=== PATIENT | female | born 1970 | race Caucasian/White ===

== ENCOUNTER 2018-11-14 10:14 | Day surgery (SDC) | payer BC ==
[2012-05-25 09:34] VITALS: BP 127/91
[2018-11-14] MEDS ORDERED: Depo-Medrol 40 MG/ML IM ONE (10:15)
[2018-11-14] MEDS ORDERED: Ketamine HCl 50 MG/ML IV ONE (10:15)
[2018-11-14] MEDS ORDERED: DIPRIVAN 200 MG/20 ML IV ONE (10:15)
[2018-11-14] MEDS ORDERED: Marcaine 0.5% SDV 10 ML IJ ONE (10:15)
[2018-11-14 12:02] LABS: BASOPHIL % 0.2 % (0.0-0.4); Basophil (Absolute #) 0.02 (0-0.4); Eosinophil % 1.8 % (0.00-5.0); Eosinophil (Absolute #) 0.16 (0-0.5); Granulocytes % 74.7 % (36.0-66.0); Hematocrit 42.1 % (35-47); Hemoglobin 13.5 gm/dl (12.0-16.0); Lymphocyte (Absolute #) 1.48 (1.0-4.6); Lymphocytes % 16.3 % (24.0-44.0); Mean Cell Volume 89.4 fl (78-100); Mean Corpuscular Hemoglobin 28.7 pg (26-32); Mean Corpuscular Hgb Concent. 32.1 g/dl (32-36); Mean Platelet Volume 12.2 fl (6-9.5); Monocyte (Absolute #) 0.64 (0.0-1.3); Platelet Count 365 K/mm3 (150-450); Red Blood Count 4.71 M/mm3 (4.1-5.4); Red Cell Distribution Width 13.9 % (11.5-14.0); White Blood Count 9.1 K/mm3 (4.0-10.5)
[2018-11-14 12:36] LABS: ALBUMIN 4.6 g/dL (3.5-5.0); ALKALINE PHOSPHATASE 91 U/L (38-126); ANION GAP 14.7 MEQ/L (5-15); BLOOD UREA NITROGEN 20 mg/dL (7-17); CHLORIDE 103 mmol/L (98-107); Calcium 9.4 mg/dL (8.4-10.2); Carbon Dioxide 28 mmol/L (22-30); Creatinine 1 0.52 mg/dL (0.52-1.04); Glucose 67 mg/dL (74-106); Potassium 4.1 mmol/L (3.5-5.1); SGOT/AST 38 U/L (14-36); SGPT/ALT 32 U/L (0-35); SODIUM 142 mmol/L (137-145); TSH, 3RD Generation 0.811 mIU/L (0.47-4.68); Total Protein 7.9 g/dL (6.3-8.2)
--- NOTE | 2018-11-14 14:00 | XRAY ---
Indication: Right SI injection. Intraoperative fluoroscopy was provided for 13 seconds. 2 digital spot images submitted for interpretation demonstrates posterior needle tip projecting over the inferior right SI joint. Correlate with intraoperative findings/report.
--- NOTE | 2018-11-14 14:10 | XRAY ---
13 seconds fluoroscopy time in surgery for right SI joint injection.
[2018-11-14] MEDS ORDERED: Lactated Ringers 1,000 ML IV ONE (14:29)
[2018-11-15 11:34] LABS: HEPATITIS B VIRUS CORE TOT AB Non Reactive (Non Reactive); Hepatitis B Surface Antigen Non Reactive (Non Reactive)
[2018-11-17 12:52] LABS: HEPATITIS C VIRUS ANTIBODY Non Reactive (Non Reactive)
== END 2018-11-14 12:32 | disposition home or self-care (01) ==
LOC: SDC-PAIN 10:14
PROVIDERS: ATTEND Psychiatry & Neurology Pain Medicine
DX: M53.3 Sacrococcygeal disorders, not elsewhere classified (principal); M46.1 Sacroiliitis, not elsewhere classified; M79.7 Fibromyalgia; F41.8 Other specified anxiety disorders; Z79.899 Other long term (current) drug therapy
CPT/HCPCS: 20611; 36415; 72020; 77002; 80053; 80074; 82306; 83036; 84443; 85025; J1030; J2704

== ENCOUNTER 2019-06-12 10:35 | Emergency (ER) | payer BC ==
--- NOTE | 2019-06-12 10:46 | ERPHSYRPT ---
- History of Present Illness Time Seen by Provider: 06/12/19 10:46 Source: patient Exam Limitations: no limitations Physician History: 48 y/o white female presents with right lower quadrant abd pain and luq abd pain of a few days duration. pts pain meds not helping. pt had associated vomiting yesterday. pt underwent a gastric bypass 7 years ago. gallbladder and appendix still intact. pt denies urinary sx. Timing/Duration: day(s) (a few) Method of Injury: other (no injury) Quality: sharp, stabbing Severity of Pain-Max: moderate Severity of Pain-Current: moderate Associated Symptoms: nausea, vomiting Previous symptoms: no prior history Allergies/Adverse Reactions: No Known Drug Allergies Allergy (Verified 05/25/12 06:10) Home Medications: Gabapentin 100 mg PO BID 06/12/19 [History] Hydrocodone Bit/Acetaminophen [Randolph 10-325 Tablet] 1 each PO QID 06/12/19 [ History] Levothyroxine Sodium [Euthyrox] 125 mcg PO DAILY 06/12/19 [History] Losartan/Hydrochlorothiazide [Losartan-Hctz 50-12.5 mg Tab] 1 each PO DAILY [History] Ropinirole HCl 1 mg PO HS 06/12/19 [History] Spironolactone 25 mg [Aldactone 25 MG] 25 mg PO DAILY 06/12/19 [History] Hx Tetanus, Diphtheria Vaccination/Date Given: Yes Hx Influenza Vaccination/Date Given: No Hx Pneumococcal Vaccination/Date Given: No - Review of Systems Constitutional: No Symptoms Eyes: No Symptoms Ears, Nose, & Throat: No Symptoms Respiratory: No Symptoms Cardiac: No Symptoms Abdominal/Gastrointestinal: Abdominal Pain (right lower and left upper quad), Nausea, Vomiting Genitourinary Symptoms: No Symptoms Musculoskeletal: No Symptoms Skin: No Symptoms Neurological: No Symptoms Psychological: No Symptoms Endocrine: No Symptoms Hematologic/Lymphatic: No Symptoms Immunological/Allergic: No Symptoms All Other Systems: Reviewed and Negative - Past Medical History Pertinent Past Medical History: Yes Neurological History: No Pertinent History ENT History: No Pertinent History Cardiac History: No Pertinent History Respiratory History: No Pertinent History Endocrine Medical History: No Pertinent History Musculoskeletal History: Arthritis GI Medical History: GERD History: No Pertinent History Psycho-Social History: No Pertinent History Female Reproductive Disorders: No Pertinent History Other Medical History: rectal bleeding, abd pain - Past Surgical History Past Surgical History: Yes Neuro Surgical History: No Pertinent History Cardiac: No Pertinent History Respiratory: No Pertinent History Gastrointestinal: No Pertinent History Genitourinary: Kidney Surgery Musculoskeletal: Other Female Surgical History: Tubal Ligation Other Surgical History: bariatric surgery - Social History Smoking Status: Never smoker Exposure to second hand smoke: No Drug Use: none Patient Lives Alone: No - Nursing Vital Signs Nursing Vital Signs: Initial Vital Signs Temperature 97.8 F 06/12/19 10:52 Pulse Rate 82 06/12/19 10:52 Respiratory Rate 18 06/12/19 10:52 Blood Pressure 133/96 06/12/19 10:52 O2 Sat by Pulse Oximetry 99 06/12/19 10:52 Pain Scale Pain Intensity 10 - Physical Exam General Appearance: mild distress, alert, anxiety Eye Exam: PERRL/EOMI, eyes nml inspection Ears, Nose, Throat Exam: normal ENT inspection, moist mucous membranes Neck Exam: normal inspection, non-tender, supple, full range of motion Respiratory Exam: normal breath sounds, lungs clear, airway intact, No chest tenderness, No respiratory distress Cardiovascular Exam: regular rate/rhythm, normal heart sounds, normal peripheral pulses Gastrointestinal Exam: soft, normal bowel sounds, tenderness (mild right lower and luq abd pain), guarding (+/-) Pelvic Exam: not done Rectal Exam: not done Back Exam: normal inspection, normal range of motion, No CVA tenderness, No vertebral tenderness Extremity Exam: normal inspection, normal range of motion, pelvis stable Neurologic Exam: alert, oriented x 3, cooperative, head of ict II-XII nml as tested Skin Exam: normal color, warm, dry Lymphatic Exam: No adenopathy SpO2 Interpretation: normal O2 Delivery: Room Air - Course Nursing assessment & vital signs reviewed: Yes Ordered Tests: Active Orders 24 hr Category Date Time Status IV Insertion STAT Care 06/12/19 10:47 Active ABDOMEN AND PELVIS W/0 CONTRAS [CT] Stat Exams 06/12/19 10:48 Completed AMYLASE Stat Lab 06/12/19 11:10 Completed CBC W DIFF Stat Lab 06/12/19 11:10 Completed CMP Stat Lab 06/12/19 11:10 Completed LIPASE Stat Lab 06/12/19 11:10 Completed Medication Summary Generic Name Dose Route Start Last Admin Trade Name Freq PRN Reason Stop Dose Admin Ondansetron HCl 4 mg 06/12/19 12:04 Zofran 4 Mg/2 Ml Vial IV 06/12/19 12:05 STAT ONE Discontinued Medications Generic Name Dose Route Start Last Admin Trade Name Marcello PRN Reason Stop Dose Admin Hydromorphone HCl 1 mg 06/12/19 10:47 06/12/19 10:59 Hydromorphone 1 Mg/Ml Ampule IV 06/12/19 10:48 1 mg STAT ONE Administration Hydromorphone HCl Confirm 06/12/19 10:58 Hydromorphone 1 Mg/Ml Ampule Administered 06/12/19 10:59 Dose 1 mg .ROUTE .STK-MED ONE Sodium Chloride 1,000 mls @ 999 mls/hr 06/12/19 10:47 06/12/19 10:54 Sodium Chloride 0.9% 1000 Ml IV 06/12/19 11:47 999 mls/hr .Q1H1M STA Administration Lab/Rad Data: Laboratory Result Diagrams 06/12/19 11:10 06/12/19 11:10 Laboratory Results 06/12/19 06/12/19 Range/Units 11:10 11:10 WBC 8.6 (4.0-10.5) K/mm3 RBC 3.78 L (4.1-5.4) M/mm3 Hgb 10.2 L (12.0-16.0) gm/dl Hct 32.2 L (35-47) % MCV 85.2 (78-100) fl MCH 26.9 (26-32) pg MCHC 31.7 L (32-36) g/dl RDW 15.1 H (11.5-14.0) % Plt Count 417 (150-450) K/mm3 MPV 12.2 H (6-9.5) fl Gran % 77.3 H (36.0-66.0) % Eos # (Auto) 0.07 (0-0.5) Absolute Lymphs (auto) 1.44 (1.0-4.6) Absolute Monos (auto) 0.44 (0.0-1.3) Lymphocytes % 16.7 L (24.0-44.0) % Monocytes % 5.1 (0.0-12.0) % Eosinophils % 0.8 (0.00-5.0) % Basophils % 0.1 (0.0-0.4) % Absolute Granulocytes 6.66 (1.4-6.9) Basophils # 0.01 (0-0.4) Sodium 139 (137-145) mmol/L Potassium 3.2 L (3.5-5.1) mmol/L Chloride 100 (98-107) mmol/L Carbon Dioxide 29 (22-30) mmol/L Anion Gap 13.2 (5-15) MEQ/L BUN 18 H (7-17) mg/dL Creatinine 0.52 (0.52-1.04) mg/dL Estimated GFR > 60.0 ML/MIN Glucose 93 (74-106) mg/dL Calcium 9.4 (8.4-10.2) mg/dL Total Bilirubin 0.50 (0.2-1.3) mg/dL AST 38 H (14-36) U/L ALT 27 (0-35) U/L Alkaline Phosphatase 86 (38-126) U/L Serum Total Protein 7.3 (6.3-8.2) g/dL Albumin 4.3 (3.5-5.0) g/dL Amylase 54 (30-110) U/L Lipase 54 (23-300) U/L - Progress Progress: unchanged Progress Note: 06/12/19 12:03 ct abd/pelvis-collapsed right ovarian cyst with mild fluid collection in pelvis. no other acute findings. Counseled pt/family regarding: lab results, diagnosis, need for follow-up, rad results - Departure Departure Disposition: Home Clinical Impression: Right ovarian cyst Condition: Stable Critical Care Time: No Referrals: DOCTOR,NO FAMILY [Primary Care Provider] - Additional Instructions: use your home medications for pain. follow up with primary doctor for further pain management if needed. may add ibuprofen for pain if no contraindications
[2019-06-12] MEDS ORDERED: Hydromorphone 1 mg/ml Ampule IV ONE (10:47)
[2019-06-12] MEDS ORDERED: Sodium Chloride 0.9% 1000 ML 1,000 ML IV STA (10:47)
[2019-06-12] MEDS ORDERED: Hydromorphone 1 mg/ml Ampule ONE (10:58)
[2019-06-12 11:30] LABS: BASOPHIL % 0.1 % (0.0-0.4); Basophil (Absolute #) 0.01 (0-0.4); Eosinophil % 0.8 % (0.00-5.0); Eosinophil (Absolute #) 0.07 (0-0.5); Granulocyte Absolute (ANC) 6.66 (1.4-6.9); Granulocytes % 77.3 % (36.0-66.0); Hematocrit 32.2 % (35-47); Hemoglobin 10.2 gm/dl (12.0-16.0); Lymphocyte (Absolute #) 1.44 (1.0-4.6); Lymphocytes % 16.7 % (24.0-44.0); Mean Cell Volume 85.2 fl (78-100); Mean Corpuscular Hgb Concent. 31.7 g/dl (32-36); Mean Platelet Volume 12.2 fl (6-9.5); Monocyte (Absolute #) 0.44 (0.0-1.3); Monocytes % 5.1 % (0.0-12.0); Platelet Count 417 K/mm3 (150-450); Red Blood Count 3.78 M/mm3 (4.1-5.4); Red Cell Distribution Width 15.1 % (11.5-14.0); White Blood Count 8.6 K/mm3 (4.0-10.5)
[2019-06-12 11:38] LABS: Mean Corpuscular Hemoglobin 26.9 pg (26-32)
[2019-06-12 11:42] LABS: ALBUMIN 4.3 g/dL (3.5-5.0); ALKALINE PHOSPHATASE 86 U/L (38-126); AMYLASE 54 U/L (30-110); ANION GAP 13.2 MEQ/L (5-15); BLOOD UREA NITROGEN 18 mg/dL (7-17); CHLORIDE 100 mmol/L (98-107); Calcium 9.4 mg/dL (8.4-10.2); Carbon Dioxide 29 mmol/L (22-30); Creatinine 1 0.52 mg/dL (0.52-1.04); Glucose 93 mg/dL (74-106); LIPASE 54 U/L (23-300); Potassium 3.2 mmol/L (3.5-5.1); SGOT/AST 38 U/L (14-36); SGPT/ALT 27 U/L (0-35); SODIUM 139 mmol/L (137-145); Total Protein 7.3 g/dL (6.3-8.2)
--- NOTE | 2019-06-12 11:52 | XRAY ---
Indication: Bilateral flank pain. History stones. Multiple contiguous axial images obtained through the abdomen and pelvis without contrast using renal stone protocol. Comparison: Contrasted exam July 13, 2014. Lung bases demonstrate stable left posterior gutter calcified granuloma. No infiltrate or effusion. Heart is not enlarged. Right kidney demonstrates 3 and left kidney demonstrates 2 nonobstructing micro-calculi. Again mild bilateral pelvocaliectasis and mild prominence of the proximal ureters. No obvious distal ureteral or bladder calculus. There is collapsing right renal cyst with tiny cul-de-sac fluid. Again previous gastric bypass surgery. Noncontrasted stomach and bowel loops are nonobstructed. Normal air-filled appendix. There is now mild diffuse scattered colonic fecal debris throughout including rectum. No free air. Remaining liver, gallbladder, pancreas, spleen, adrenal glands, bladder, uterus, and aorta appear unremarkable for noncontrast exam. Osseous structures intact again with mild lower lumbar degenerative changes. No ventral or inguinal hernias. Impression: 1. Nonobstructing bilateral renal micro-calculi with stable bilateral pelvocaliectasis and prominence of the proximal ureters. 2. Collapsing right ovary cyst with tiny cul-de-sac fluid. 3. Incidental diffuse fecal stasis and stable left lung base calcified granuloma. CT DI 13.03
[2019-06-12] MEDS ORDERED: Zofran 4 MG/2 ML VIAL IV ONE (12:04)
[2019-06-12] MEDS ORDERED: Zofran 4 MG/2 ML VIAL ONE (12:07)
[2019-06-12 12:16] VITALS: BP 139/93
[2019-06-12 12:19] VITALS: PULSE 88; O2SAT 98
[2019-06-12 14:55] LABS: Slide Review 1 YES
== END 2019-06-12 12:17 | disposition home or self-care (01) ==
LOC: ED 10:35
DX: N83.201 Unspecified ovarian cyst, right side (principal)
CPT/HCPCS: 36000; 36415; 74176; 80053; 82150; 83690; 85025; 96360; 96374; 96375; 99284; J1170; J2405

== ENCOUNTER 2021-12-23 11:47 | Emergency (ER) | payer BC ==
[2021-12-23] MEDS ORDERED: Sodium Chloride 0.9% 1000 ML 1,000 ML IV STA (12:18)
[2021-12-23] MEDS ORDERED: PROTONIX 40 MG IV IV ONE ×2 (12:18→12:36)
[2021-12-23] MEDS ORDERED: Zofran 4 MG/2 ML VIAL IV ONE (12:18)
--- NOTE | 2021-12-23 12:18 | ERPHSYRPT ---
- History of Present Illness Time Seen by Provider: 12/23/21 11:49 Patient Subjective Stated Complaint: PT STATES " ABDOMINAL PAIN ABOVE BELLY BUTTON STARTED MONDAY AND GOT WORSE YESTERDAY. LOOSE, BLACK STOOLS, AND NAUSEA, VOMITING." PT STATES SHE HAS ALSO HAD SOME SOB AND DIZZINESS TODAY. Triage Nursing Assessment: PT AMBULATORY, A&OX4. PT SKIN PWD. PT APPEARS TO BE IN NO DISTRESS. Physician History: 51 years old female with history of bariatric surgery presented in the ER with chief complaint of periumbilical/epigastric area pain for the last 2 days, moderate to severe intensity, sharp nature, nonradiating, associated with nausea and this morning started to have loose stool Timing/Duration: day(s) (2), constant, gradual onset, worse Activities at Onset: rest Quality: sharpness Abdominal Pain Onset Location: epigastric, periumbilical Pain Radiation: no radiation Severity of Pain-Max: severe Severity of Pain-Current: moderate Modifying Factors: Worsens With: movement, palpation Associated Symptoms: diarrhea, fatigue, heartburn, nausea, shortness of breath, weakness Previous symptoms: no prior history Allergies/Adverse Reactions: No Known Drug Allergies Allergy (Verified 12/23/21 11:56) Home Medications: Hydrocodone/Acetaminophen [[place] 10-325 Tablet] 1 each PO QID 06/12/19 [History] Ropinirole HCl 1 mg PO HS 06/12/19 [History] Desvenlafaxine Succinate [Desvenlafaxine Succinate ER] 100 mg PO DAILY 05/15/20 [History] Lisinopril 5 mg [Zestril 5 MG] 5 mg PO DAILY 05/15/20 [History] Hx Tetanus, Diphtheria Vaccination/Date Given: Yes Hx Influenza Vaccination/Date Given: No Hx Pneumococcal Vaccination/Date Given: No Travel Risk - International Travel Have you traveled outside of the country in past 3 weeks: No - Coronavirus Screening Symptoms: Shortness of Breath, Vomiting/Diarrhea Close contact with a COVID-19 positive Pt in past 14-21 Days: No - Vaccine Status Have you recieved a Covid-19 vaccination: Yes [employer]: Moderna - Vaccination Dates Date of 2cond Vaccination (if applicable): JANUARY 2021 - Review of Systems Constitutional: Fatigue, Weakness Eyes: No Symptoms Ears, Nose, & Throat: No Symptoms Respiratory: Dyspnea, Dyspnea on Exertion ([place]) Cardiac: No Symptoms Abdominal/Gastrointestinal: Abdominal Pain, Nausea, Diarrhea, Hematochezia Genitourinary Symptoms: No Symptoms Musculoskeletal: No Symptoms Skin: No Symptoms Neurological: Dizziness Psychological: No Symptoms Endocrine: No Symptoms Hematologic/Lymphatic: No Symptoms Immunological/Allergic: No Symptoms - Past Medical History Pertinent Past Medical History: Yes Neurological History: No Pertinent History ENT History: No Pertinent History Cardiac History: Hypertension Respiratory History: No Pertinent History Endocrine Medical History: No Pertinent History Musculoskeletal History: Fibromyalgia GI Medical History: GERD History: No Pertinent History Psycho-Social History: No Pertinent History Female Reproductive Disorders: No Pertinent History Other Medical History: rectal bleeding, abd pain, - Past Surgical History Past Surgical History: Yes Neuro Surgical History: No Pertinent History Cardiac: No Pertinent History Respiratory: No Pertinent History Gastrointestinal: No Pertinent History Genitourinary: Kidney Surgery Musculoskeletal: Other Female Surgical History: Tubal Ligation Other Surgical History: bariatric surgery - Social History Smoking Status: Never smoker Exposure to second hand smoke: No Drug Use: none Patient Lives Alone: No - Nursing Vital Signs Nursing Vital Signs: Initial Vital Signs Temperature 97.5 F 12/23/21 11:49 Pulse Rate 103 H 12/23/21 11:49 Respiratory Rate 18 12/23/21 11:49 Blood Pressure 138/80 12/23/21 11:49 O2 Sat by Pulse Oximetry 100 12/23/21 11:49 Pain Scale Pain Intensity 5 - Physical Exam General Appearance: no apparent distress, alert Eye Exam: PERRL/EOMI, eyes nml inspection Ears, Nose, Throat Exam: normal ENT inspection, pharynx normal Neck Exam: normal inspection, non-tender, supple, full range of motion Respiratory Exam: normal breath sounds, lungs clear Cardiovascular Exam: regular rate/rhythm, normal heart sounds Gastrointestinal/Abdomen Exam: soft, normal bowel sounds, tenderness (Upper abdomen/periumbilical area) Back Exam: normal inspection, normal range of motion Extremity Exam: normal inspection, normal range of motion Neurologic Exam: alert, oriented x 3, cooperative Skin Exam: normal color SpO2 Interpretation: normal SpO2: 100 O2 Delivery: Room Air Ordered Tests: Active Orders 24 hr Category Date Time Status IV Insertion STAT Care 12/23/21 12:18 Completed ABDOMEN AND PELVIS W CONTRAST [CT] Stat Exams 12/23/21 12:18 Completed AMYLASE Stat Lab 12/23/21 12:16 Completed CBC W DIFF Stat Lab 12/23/21 12:16 Results CMP Stat Lab 12/23/21 12:16 Completed CULTURE,URINE Stat Lab 12/23/21 12:18 Received Hematocrit Stat Lab 12/23/21 15:00 Completed Hemoglobin Stat Lab 12/23/21 15:00 Completed LIPASE Stat Lab 12/23/21 12:16 Completed Lactic Acid Stat Lab 12/23/21 12:18 Completed Manual Differential NC Stat Lab 12/23/21 12:16 Results PROTIME WITH INR Stat Lab 12/23/21 12:16 Completed PTT Stat Lab 12/23/21 12:16 Completed Pathologist Review Stat Lab 12/23/21 12:16 Results TROPONIN Q3H Lab 12/23/21 12:30 Completed Medication Summary Discontinued Medications Generic Name Dose Route Start Last Admin Trade Name Freq PRN Reason Stop Dose Admin Fentanyl Citrate Confirm 12/23/21 14:17 Fentanyl Citrate 100 Mcg/2 Ml* Vial Administered 12/23/21 14:18 Dose 100 mcg .ROUTE .STK-MED ONE Fentanyl Citrate 50 mcg 12/23/21 14:17 12/23/21 16:55 Fentanyl Citrate 100 Mcg/2 Ml* Vial IV 12/23/21 14:18 50 mcg STAT ONE Administration Fentanyl Citrate Confirm 12/23/21 16:47 Fentanyl Citrate 100 Mcg/2 Ml* Vial Administered 12/23/21 16:48 Dose 100 mcg .ROUTE .STK-MED ONE Fentanyl Citrate 50 mcg 12/23/21 16:49 12/23/21 16:55 Fentanyl Citrate 100 Mcg/2 Ml* Vial IV 12/23/21 16:50 50 mcg STAT ONE Administration Sodium Chloride 1,000 mls @ 999 mls/hr 12/23/21 12:18 12/23/21 14:05 Sodium Chloride 0.9% 1000 Ml IV 12/23/21 13:18 Infused .Q1H1M STA Infusion Pantoprazole Sodium 80 mg/ 500 mls @ 50 mls/hr 12/23/21 12:45 12/23/21 14:12 Sodium Chloride IV 01/22/22 12:44 50 ml/hr .Q10H L[place] 50 mls/hr Administration Sodium Chloride Confirm 12/23/21 12:36 Sodium Chloride 0.9% 1000 Ml Administered 12/23/21 12:37 Dose 1,000 mls @ ud .ROUTE .STK-MED ONE Sodium Chloride Confirm 12/23/21 15:01 Sodium Chloride 0.9% 1000 Ml Administered 12/23/21 15:02 Dose 1,000 mls @ ud .ROUTE .STK-MED ONE Sodium Chloride 1,000 mls @ 50 mls/hr 12/23/21 15:45 12/23/21 15:34 Sodium Chloride 0.9% 1000 Ml IV 01/22/22 15:44 50 mls/hr .Q20H [place] Administration Ondansetron HCl 4 mg 12/23/21 12:18 12/23/21 12:40 Ondansetron Hcl 4 Mg/2 Ml Vial IV 12/23/21 12:19 4 mg STAT ONE Administration Ondansetron HCl Confirm 12/23/21 12:36 Ondansetron Hcl 4 Mg/2 Ml Vial Administered 12/23/21 12:37 Dose 4 mg .ROUTE .STK-MED ONE Pantoprazole Sodium 40 mg 12/23/21 12:18 12/23/21 12:40 Pantoprazole 40 Mg Vial IV 12/23/21 12:19 40 mg STAT ONE Administration Pantoprazole Sodium Confirm 12/23/21 12:36 Pantoprazole 40 Mg Vial Administered 12/23/21 12:37 Dose 40 mg IV .STK-MED ONE Lab/Rad Data: Laboratory Result Diagrams 12/23/21 15:00 12/23/21 12:16 Laboratory Results 12/23/21 12/23/21 12/23/21 Range/Units 15:00 12:50 12:50 WBC (4.0-10.5) K/mm3 RBC (4.1-5.4) M/mm3 Hgb 5.8 L* (12.0-16.0) gm/dl Hct 19.2 L (35-47) % MCV (78-100) fl MCH (26-32) pg MCHC (32-36) g/dl RDW (11.5-14.0) % Plt Count (150-450) K/mm3 MPV (7.5-11.0) fl Gran % (36.0-66.0) % Eos # (Auto) (0-0.5) Absolute Lymphs (auto) (1.0-4.6) Absolute Monos (auto) (0.0-1.3) Lymphocytes % (24.0-44.0) % Monocytes % (0.0-12.0) % Eosinophils % (0.00-5.0) % Basophils % (0.0-0.4) % Absolute Granulocytes (1.4-6.9) Basophils # (0-0.4) Smear Path Review PT (9.4-12.5) SECONDS INR (0.8-3.0) APTT (25.1-36.5) SECONDS Sodium (137-145) mmol/L Potassium (3.5-5.1) mmol/L Chloride (98-107) mmol/L Carbon Dioxide (22-30) mmol/L Anion Gap (5-15) MEQ/L BUN (7-17) mg/dL Creatinine (0.52-1.04) mg/dL Estimated GFR ML/MIN Glucose (74-106) mg/dL Lactic Acid (0.4-2.0) Calcium (8.4-10.2) mg/dL Total Bilirubin (0.2-1.3) mg/dL AST (14-36) U/L ALT (0-35) U/L Alkaline Phosphatase (38-126) U/L Troponin I (0.000-0.034) ng/mL Serum Total Protein (6.3-8.2) g/dL Albumin (3.5-5.0) g/dL Amylase (30-110) U/L Lipase (23-300) U/L Urinalys Dipstick Clnc Urine Color (YELLOW) Urine Appearance (CLEAR) Urine pH (5-6) Ur Specific [place] (1.005-1.025) POC Urine Protein Conf (Negative) Urine Ketones (NEGATIVE) Urine Nitrite (NEGATIVE) Urine Bilirubin (NEGATIVE) Urine Urobilinogen (0-1) mg/dL Urine Leukocytes (NEGATIVE) Urine WBC (Auto) (0-5) /HPF Urine RBC (Auto) (0-2) /HPF Urine Bacteria (Auto) (NEGATIVE) /HPF Urine RBC (0-5) Unruly/ul Calcium Oxalate Crystal (NEGATIVE) /HPF Urine Mucus (Auto) (NEGATIVE) /HPF Ur Culture Indicated? Urine Glucose (NEGATIVE) mg/dL ABO Group Rh Factor Antibody Screen (NEGATIVE) Crossmatch COMPATIBLE COMPATIBLE (COMPATIBLE) 12/23/21 12/23/21 12/23/21 Range/Units 12:50 12:30 12:18 WBC (4.0-10.5) K/mm3 RBC (4.1-5.4) M/mm3 Hgb (12.0-16.0) gm/dl Hct (35-47) % MCV (78-100) fl MCH (26-32) pg MCHC (32-36) g/dl RDW (11.5-14.0) % Plt Count (150-450) K/mm3 MPV (7.5-11.0) fl Gran % (36.0-66.0) % Eos # (Auto) (0-0.5) Absolute Lymphs (auto) (1.0-4.6) Absolute Monos (auto) (0.0-1.3) Lymphocytes % (24.0-44.0) % Monocytes % (0.0-12.0) % Eosinophils % (0.00-5.0) % Basophils % (0.0-0.4) % Absolute Granulocytes (1.4-6.9) Basophils # (0-0.4) Smear Path Review PT (9.4-12.5) SECONDS INR (0.8-3.0) APTT (25.1-36.5) SECONDS Sodium (137-145) mmol/L Potassium (3.5-5.1) mmol/L Chloride (98-107) mmol/L Carbon Dioxide (22-30) mmol/L Anion Gap (5-15) MEQ/L BUN (7-17) mg/dL Creatinine (0.52-1.04) mg/dL Estimated GFR ML/MIN Glucose (74-106) mg/dL Lactic Acid 1.4 (0.4-2.0) Calcium (8.4-10.2) mg/dL Total Bilirubin (0.2-1.3) mg/dL AST (14-36) U/L ALT (0-35) U/L Alkaline Phosphatase (38-126) U/L Troponin I < 0.012 (0.000-0.034) ng/mL Serum Total Protein (6.3-8.2) g/dL Albumin (3.5-5.0) g/dL Amylase (30-110) U/L Lipase (23-300) U/L Urinalys Dipstick Clnc Urine Color (YELLOW) Urine Appearance (CLEAR) Urine pH (5-6) Ur Specific [place] (1.005-1.025) POC Urine Protein Conf (Negative) Urine Ketones (NEGATIVE) Urine Nitrite (NEGATIVE) Urine Bilirubin (NEGATIVE) Urine Urobilinogen (0-1) mg/dL Urine Leukocytes (NEGATIVE) Urine WBC (Auto) (0-5) /HPF Urine RBC (Auto) (0-2) /HPF Urine Bacteria (Auto) (NEGATIVE) /HPF Urine RBC (0-5) Unruly/ul Calcium Oxalate Crystal (NEGATIVE) /HPF Urine Mucus (Auto) (NEGATIVE) /HPF Ur Culture Indicated? Urine Glucose (NEGATIVE) mg/dL ABO Group B Rh Factor POSITIVE Antibody Screen NEGATIVE (NEGATIVE) Crossmatch (COMPATIBLE) 12/23/21 12/23/21 12/23/21 Range/Units 12:18 12:16 12:16 WBC (4.0-10.5) K/mm3 RBC (4.1-5.4) M/mm3 Hgb (12.0-16.0) gm/dl Hct (35-47) % MCV (78-100) fl MCH (26-32) pg MCHC (32-36) g/dl RDW (11.5-14.0) % Plt Count (150-450) K/mm3 MPV (7.5-11.0) fl Gran % (36.0-66.0) % Eos # (Auto) (0-0.5) Absolute Lymphs (auto) (1.0-4.6) Absolute Monos (auto) (0.0-1.3) Lymphocytes % (24.0-44.0) % Monocytes % (0.0-12.0) % Eosinophils % (0.00-5.0) % Basophils % (0.0-0.4) % Absolute Granulocytes (1.4-6.9) Basophils # (0-0.4) Smear Path Review PT 12.1 (9.4-12.5) SECONDS INR 1.03 (0.8-3.0) APTT 26.8 (25.1-36.5) SECONDS Sodium 141 (137-145) mmol/L Potassium 3.7 (3.5-5.1) mmol/L Chloride 106 (98-107) mmol/L Carbon Dioxide 26 (22-30) mmol/L Anion Gap 12.0 (5-15) MEQ/L BUN 23 H (7-17) mg/dL Creatinine 0.50 L (0.52-1.04) mg/dL Estimated GFR > 60.0 ML/MIN Glucose 126 H (74-106) mg/dL Lactic Acid (0.4-2.0) Calcium 9.2 (8.4-10.2) mg/dL Total Bilirubin 0.20 (0.2-1.3) mg/dL AST 22 (14-36) U/L ALT 17 (0-35) U/L Alkaline Phosphatase 62 (38-126) U/L Troponin I (0.000-0.034) ng/mL Serum Total Protein 5.9 L (6.3-8.2) g/dL Albumin 3.7 (3.5-5.0) g/dL Amylase 30 (30-110) U/L Lipase 117 (23-300) U/L Urinalys Dipstick Clnc MAIN LAB Urine Color YELLOW (YELLOW) Urine Appearance SLIGHTLY CLOUDY (CLEAR) Urine pH 7.0 (5-6) Ur Specific [place] 1.015 (1.005-1.025) POC Urine Protein Conf NEGATIVE (Negative) Urine Ketones NEGATIVE (NEGATIVE) Urine Nitrite POSITIVE (NEGATIVE) Urine Bilirubin NEGATIVE (NEGATIVE) Urine Urobilinogen 1 (0-1) mg/dL Urine Leukocytes NEGATIVE (NEGATIVE) Urine WBC (Auto) 6-10 (0-5) /HPF Urine RBC (Auto) 0-2 (0-2) /HPF Urine Bacteria (Auto) MANY (NEGATIVE) /HPF Urine RBC NEGATIVE (0-5) Unruly/ul Calcium Oxalate Crystal 11-25 (NEGATIVE) /HPF Urine Mucus (Auto) SLIGHT (NEGATIVE) /HPF Ur Culture Indicated? YES Urine Glucose 100 (NEGATIVE) mg/dL ABO Group Rh Factor Antibody Screen (NEGATIVE) Crossmatch (COMPATIBLE) 12/23/21 Range/Units 12:16 WBC 6.7 (4.0-10.5) K/mm3 RBC 2.45 L (4.1-5.4) M/mm3 Hgb 6.4 L* (12.0-16.0) gm/dl Hct 20.8 L (35-47) % MCV 84.9 (78-100) fl MCH 26.1 (26-32) pg MCHC 30.8 L (32-36) g/dl RDW 14.9 H (11.5-14.0) % Plt Count 437 (150-450) K/mm3 MPV 10.4 (7.5-11.0) fl Gran % 75.5 H (36.0-66.0) % Eos # (Auto) 0.04 (0-0.5) Absolute Lymphs (auto) 1.07 (1.0-4.6) Absolute Monos (auto) 0.53 (0.0-1.3) Lymphocytes % 15.9 L (24.0-44.0) % Monocytes % 7.9 (0.0-12.0) % Eosinophils % 0.6 (0.00-5.0) % Basophils % 0.1 (0.0-0.4) % Absolute Granulocytes 5.07 (1.4-6.9) Basophils # 0.01 (0-0.4) Smear Path Review Pending PT (9.4-12.5) SECONDS INR (0.8-3.0) APTT (25.1-36.5) SECONDS Sodium (137-145) mmol/L Potassium (3.5-5.1) mmol/L Chloride (98-107) mmol/L Carbon Dioxide (22-30) mmol/L Anion Gap (5-15) MEQ/L BUN (7-17) mg/dL Creatinine (0.52-1.04) mg/dL Estimated GFR ML/MIN Glucose (74-106) mg/dL Lactic Acid (0.4-2.0) Calcium (8.4-10.2) mg/dL Total Bilirubin (0.2-1.3) mg/dL AST (14-36) U/L ALT (0-35) U/L Alkaline Phosphatase (38-126) U/L Troponin I (0.000-0.034) ng/mL Serum Total Protein (6.3-8.2) g/dL Albumin (3.5-5.0) g/dL Amylase (30-110) U/L Lipase (23-300) U/L Urinalys Dipstick Clnc Urine Color (YELLOW) Urine Appearance (CLEAR) Urine pH (5-6) Ur Specific [place] (1.005-1.025) POC Urine Protein Conf (Negative) Urine Ketones (NEGATIVE) Urine Nitrite (NEGATIVE) Urine Bilirubin (NEGATIVE) Urine Urobilinogen (0-1) mg/dL Urine Leukocytes (NEGATIVE) Urine WBC (Auto) (0-5) /HPF Urine RBC (Auto) (0-2) /HPF Urine Bacteria (Auto) (NEGATIVE) /HPF Urine RBC (0-5) Unruly/ul Calcium Oxalate Crystal (NEGATIVE) /HPF Urine Mucus (Auto) (NEGATIVE) /HPF Ur Culture Indicated? Urine Glucose (NEGATIVE) mg/dL ABO Group Rh Factor Antibody Screen (NEGATIVE) Crossmatch (COMPATIBLE) - Progress Progress: unchanged Progress Note: 12/23/21 12:37 51 years old is evaluated for abdominal pain with GI bleed. Patient is hemodynamically stable. Given symptomatic treatment for pain and Protonix. Patient work-up showed normal white count and drop of hemoglobin from 10-6.4. Type and screen and crossmatch and will transfuse as soon as available. Di scussed risk and benefits of transfusion and patient wanted to go ahead with it. Chemistries grossly unremarkable. I have discussed with Dr. Jose Wilson at [facility], recommended calling back after CT abdomen pelvis results. 12/23/21 14:18 [facility] is called back and discussed with Dr. Wilson and Dr. Darnell Chery, recommended transfer to facility with bariatric surgery services as patient could be bleeding from remnant which cannot be approached with normal endoscopy. 12/23/21 14:39 [place] discussed with Dr. Smith, reviewed history, work-up and patient is excepted on behalf of Dr. Samaniego. Plan discussed with patient who understand and agrees with it. 12/23/21 16:14 Patient remained hemodynamically stable. Repeat H&H is 5.8. Patient is receiving first unit of PRBCs and will soon be transferred. Counseled pt/family regarding: lab results, diagnosis, rad results - Departure Departure Disposition: Transfer Clinical Impression: GI bleed, Symptomatic anemia Condition: Stable Critical Care Time: Yes Critical Care Time(excluding separately billable procedures): Critical 30-74 mins Referrals: DOCTOR,NO FAMILY [NON-STAFF PHY W/O PRIVILEGES] - Follow up/PCP as directed
[2021-12-23 12:27] LABS: Absolute Neutrophil Ct (ANC) 5.07 (1.4-6.9); Basophil (Absolute #) 0.01 (0-0.4); Eosinophil % 0.6 % (0.00-5.0); Eosinophil (Absolute #) 0.04 (0-0.5); Hematocrit 20.8 % (35-47); Lymphocyte (Absolute #) 1.07 (1.0-4.6); Lymphocytes % 15.9 % (24.0-44.0); Mean Cell Volume 84.9 fl (78-100); Mean Corpuscular Hemoglobin 26.1 pg (26-32); Mean Corpuscular Hgb Concent. 30.8 g/dl (32-36); Mean Platelet Volume 10.4 fl (7.5-11.0); Monocyte (Absolute #) 0.53 (0.0-1.3); Monocytes % 7.9 % (0.0-12.0); Neutrophil % 75.5 % (36.0-66.0); Platelet Count 437 K/mm3 (150-450); Red Blood Count 2.45 M/mm3 (4.1-5.4); Red Cell Distribution Width 14.9 % (11.5-14.0); White Blood Count 6.7 K/mm3 (4.0-10.5)
[2021-12-23 12:30] LABS: Hemoglobin 6.4 gm/dl (12.0-16.0)
[2021-12-23] MEDS ORDERED: Sodium Chloride 0.9% 1000 ML 1,000 ML ONE ×2 (12:36→15:01)
[2021-12-23] MEDS ORDERED: Zofran 4 MG/2 ML VIAL ONE (12:36)
[2021-12-23 12:37] LABS: ALBUMIN 3.7 g/dL (3.5-5.0); ALKALINE PHOSPHATASE 62 U/L (38-126); AMYLASE 30 U/L (30-110); BLOOD UREA NITROGEN 23 mg/dL (7-17); CHLORIDE 106 mmol/L (98-107); Calcium 9.2 mg/dL (8.4-10.2); Carbon Dioxide 26 mmol/L (22-30); EST GLOMERULAR FILTRATION RATE > 60.0 ML/MIN; Glucose 126 mg/dL (74-106); LIPASE 117 U/L (23-300); Potassium 3.7 mmol/L (3.5-5.1); SGOT/AST 22 U/L (14-36); SGPT/ALT 17 U/L (0-35); SODIUM 141 mmol/L (137-145); Total Protein 5.9 g/dL (6.3-8.2)
[2021-12-23 12:40] LABS: Appearance SLIGHTLY CLOUDY (CLEAR); Bacteria MANY /HPF (NEGATIVE); Bilirubin NEGATIVE (NEGATIVE); Glucose 100 mg/dL (NEGATIVE); Ketones NEGATIVE (NEGATIVE); Mucus SLIGHT /HPF (NEGATIVE); Protein,Urine Dip NEGATIVE (Negative); RBC 0-2 /HPF (0-2); RBC NEGATIVE Ery/ul (0-5); Specific Gravity 1.015 (1.005-1.025)
[2021-12-23 12:41] LABS: Nitrite POSITIVE (NEGATIVE); Urine Cultured Indicated? YES; Urobilinogen 1 mg/dL (0-1)
[2021-12-23] MEDS ORDERED: PROTONIX 40 MG IV*** 80 MG in Sodium Chloride 0.9% 500 ML 500 ML IV SCH (12:45)
[2021-12-23 13:17] LABS: Dipstick done @ ? MAIN LAB
--- NOTE | 2021-12-23 13:23 | XRAY ---
Indication: Abdomen pain, dizziness, nausea, vomiting, diarrhea, and tarry/bloody stools. Short of breath. Multiple contiguous axial images obtained through the abdomen and pelvis using 80 cc Isovue 370 contrast. Comparison: June 12, 2019. Lung bases again demonstrates small left base calcified granuloma. Heart not enlarged. Again previous gastric bypass surgery. Noncontrasted stomach and bowel loops nonobstructed. Normal appendix. No free fluid/air. Again 5 mm calculus in each kidney without hydronephrosis or hydroureter. Remaining liver, gallbladder, pancreas, spleen, adrenal glands, kidneys, ureters, bladder, and uterus are unremarkable. Minimal aortic calcifications. No AAA or pathological retroperitoneal lymphadenopathy. Osseous structures intact again with minimal lower lumbar degenerative changes. Impression: 1. Again nonobstructing micro-calculus bilaterally. 2. Remaining CT abdomen/pelvis with contrast exam is again negative.
[2021-12-23 13:37] LABS: ABO TYPING B; Antibody Screen NEGATIVE (NEGATIVE); RH TYPING POSITIVE
[2021-12-23] MEDS ORDERED: SUBLIMAZE 100 MCG/2 ML ONE ×2 (14:17→16:47)
[2021-12-23] MEDS ORDERED: SUBLIMAZE 100 MCG/2 ML IV ONE ×2 (14:17→16:49)
[2021-12-23 14:49] LABS: CROSS MATCH (PRBC) COMPATIBLE (COMPATIBLE)
[2021-12-23 14:59] LABS: INR 1.03 (0.8-3.0); PROTIME 12.1 SECONDS (9.4-12.5)
[2021-12-23 15:02] LABS: PTT 26.8 SECONDS (25.1-36.5)
[2021-12-23 15:21] LABS: Hematocrit 19.2 % (35-47)
[2021-12-23 15:24] LABS: Hemoglobin 5.8 gm/dl (12.0-16.0)
[2021-12-23] MEDS ORDERED: Sodium Chloride 0.9% 1000 ML 1,000 ML IV SCH (15:45)
[2021-12-23 17:22] VITALS: BP 146/84; PULSE 98
[2021-12-23 21:05] VITALS: O2SAT 100
== END 2021-12-23 18:02 | disposition short-term general hospital (02) ==
LOC: ED 11:47
DX: K92.2 Gastrointestinal hemorrhage, unspecified (principal); D50.0 Iron deficiency anemia secondary to blood loss (chronic); R10.33 Periumbilical pain; R10.13 Epigastric pain; R19.7 Diarrhea, unspecified; R11.0 Nausea; R53.83 Other fatigue; R53.1 Weakness; K21.9 Gastro-esophageal reflux disease without esophagitis; Z98.84 Bariatric surgery status; Z79.891 Long term (current) use of opiate analgesic; Z79.899 Other long term (current) drug therapy
CPT/HCPCS: 36000; 36415; 36430; 74177; 80053; 81015; 82150; 83605; 83690; 84484; 85014; 85018; 85025; 85610; 85730; 86850; 86900; 86901; 86922; 87077; 87086; 87186; 93005; 96374; 96375; 96376; 99285; 99291; P9016; J2405; J3010

== ENCOUNTER 2024-05-31 16:30 | Emergency (ER) | payer BC, OTHER ==
--- NOTE | 2024-05-31 16:44 | ERPHSYRPT ---
- History of Present Illness Time Seen by Provider: 05/31/24 16:44 Source: patient, family Exam Limitations: no limitations Physician History: This is a 53-year-old white female patient who fell off of her deck earlier today and landed directly on the heel of her left foot. She has some bruising present and pain that she describes as sharp, aching, intermittent. Patient does take oxycodone each day. Patient has a history of hypertension, anxiety/depression and gastroesophageal reflux disease. She has no other areas of injury or complaints of pain Method of Injury: fell (Off of her deck landing on the left foot/heel) Occurred: this afternoon Quality: constant, intermittent, aching, sharpness Severity of Pain-Max: moderate Severity of Pain-Current: moderate Lower Extremities Pain: heel: left Modifying Factors: Improves With: movement, other (Weightbearing worsens) Associated Symptoms: other (Hurts to bear weight) Allergies/Adverse Reactions: No Known Drug Allergies Allergy (Verified 05/31/24 16:40) Home Medications: Ropinirole HCl 1 mg PO HS 06/12/19 [History] Lisinopril 5 mg [Zestril 5 MG] 20 mg PO HS 05/15/20 [History] Omeprazole 40 mg PO DAILY 02/01/22 [History] Oxycodone / APAP 10/325 mg [Oxycodone-Acetaminophen 10-325] 1 tab PO QID 05/31/24 [History] PARoxetine HCL [Paxil] 1 tab PO DAILY 05/31/24 [History] Pregabalin [Lyrica 75 mg Cap] 1 tab PO TID 05/31/24 [History] Hx Tetanus, Diphtheria Vaccination/Date Given: Yes Hx Influenza Vaccination/Date Given: No Hx Pneumococcal Vaccination/Date Given: No Travel Risk - International Travel Have you traveled outside of the country in past 3 weeks: No - Emerging Infectious Disease Are you exhibiting symptoms associated with any current EIDs: No - Review of Systems Constitutional: No Symptoms Eyes: No Symptoms Ears, Nose, & Throat: No Symptoms Respiratory: No Symptoms Cardiac: No Symptoms Abdominal/Gastrointestinal: No Symptoms Genitourinary Symptoms: No Symptoms Musculoskeletal: No Symptoms Skin: No Symptoms Neurological: No Symptoms Psychological: No Symptoms Endocrine: No Symptoms Hematologic/Lymphatic: No Symptoms Immunological/Allergic: No Symptoms All Other Systems: Reviewed and Negative - Past Medical History Pertinent Past Medical History: Yes Neurological History: No Pertinent History ENT History: No Pertinent History Cardiac History: Hypertension Respiratory History: No Pertinent History Endocrine Medical History: No Pertinent History Musculoskeletal History: Fibromyalgia GI Medical History: GERD, Ulcer History: No Pertinent History Psycho-Social History: No Pertinent History Female Reproductive Disorders: No Pertinent History Other Medical History: DEPRESSION, ANXIETY, VERTIGO, MEMORY IMPAIRMENT, FIBROMY [place]GIA. - Past Surgical History Past Surgical History: Yes Neuro Surgical History: No Pertinent History Cardiac: No Pertinent History Respiratory: No Pertinent History Gastrointestinal: No Pertinent History Genitourinary: Kidney Surgery Musculoskeletal: Other Female Surgical History: Tubal Ligation Other Surgical History: bariatric surgery. cauterized bleeding ulcer - Social History Smoking Status: Never smoker Exposure to second hand smoke: No Drug Use: none Patient Lives Alone: No - Nursing Vital Signs Nursing Vital Signs: Initial Vital Signs Temperature 97.8 F 05/31/24 16:45 Pulse Rate 96 H 05/31/24 16:45 Respiratory Rate 20 05/31/24 16:45 Blood Pressure 163/98 05/31/24 16:45 O2 Sat by Pulse Oximetry 100 05/31/24 16:45 Pain Scale Pain Intensity 8 - Physical Exam General Appearance: no apparent distress, alert, anxiety, thin Eyes, Ears, Nose, Throat Exam: normal ENT inspection, moist mucous membranes Neck Exam: normal inspection, non-tender, supple, full range of motion Cardiovascular/Respiratory Exam: chest non-tender, no respiratory distress Gastrointestinal/Abdominal Exam: non-tender Back Exam: normal inspection, normal range of motion, No CVA tenderness, No vertebral tenderness Hips Exam: bilateral: non-tender, normal inspection, normal range of motion, no evidence of injury Legs Exam: bilateral leg: non-tender, normal inspection, normal range of motion, no evidence of injury Knees Exam: bilateral knee: non-tender, normal inspection, normal range of motion, no evidence of injury Ankle Exam: bilateral ankle: non-tender, normal inspection, normal range of motion, no evidence of injury Foot Exam: right foot: non-tender, normal inspection, normal range of motion, no evidence of injury, left foot: bone tenderness (Left heel), soft tissue tenderness (Left heel) Neuro/Tendon Exam: normal sensation, normal motor functions, normal tendon functions, responds to pain, no evidence tendon injury Mental Status Exam: alert, oriented x 3, cooperative Skin Exam: normal color, warm, dry SpO2 Interpretation: normal O2 Delivery: Room Air - Course Nursing assessment & vital signs reviewed: Yes Ordered Tests: Active Orders 24 hr Category Date Time Status FOOT (MINIMUM 3 VIEWS) Stat Exams 05/31/24 16:39 Completed - Progress Progress: unchanged, pain not gone completely, re-examined Progress Note: 05/31/24 17:22 My medical decision making and the assignment of low complexity to this patient's medical issue today is based on review of the patient's past medical history, review of the patient's medication list, reviewed patient drug allergy list, history present illness and physical findings on examination. The workup in this patient includes x-ray of the patient's left foot. Differential diagnosis includes but is not limited to left foot/toe fractures, left foot/toe contusions I interpreted the preliminary report of this patient's left foot x-ray. I did not appreciate any acute fracture or dislocation. The radiologist interpreted the final interpretation of the left foot x-ray. There is no evidence of any acute fracture or dislocation present. Counseled pt/family regarding: diagnosis, need for follow-up, rad results Medical Desision Making - Diagnostic Testing Diagnostic test were ordered, analyzed, and reviewed by me: Yes Radiological Interpretation: Interpreted by me, Reviewed by me, Teleradiologist Report - Risk of complications Low Risk: Low risk of morbidity from additional dx testing or treatment - Departure Departure Disposition: Home Clinical Impression: Contusion of left foot or heel Condition: Stable Critical Care Time: No Referrals: RUFINA TIAN MD [Primary Care Provider] - Follow up/PCP as directed Additional Instructions: Ice bath/pack to tender area of the left foot 3-4 times a day for the next 72 hours. Continue your oxycodone for pain control. Call your primary care provider on 06/03/2024 to make arranges for follow-up appointment to be seen in the next 3 to 5 days. You may also follow-up in the [facility] orthopedic clinic Monday through Monday 8 to 10 AM. It is a walk-in clinic and you do not need to have an appointment. Your third option is to follow-up with [facility] maintenance specialist, Dr. Morris on 06/03/2024 by phone to make arrangements for an outpatient clinic appointment.
[2024-05-31 17:04] VITALS: BP 163/98; PULSE 96; RESP 20; TEMP 97.8; O2SAT 100
--- NOTE | 2024-05-31 17:04 | XRAY ---
Indication: Pain following fall. Comparison: None 3 nonweightbearing views left foot obtained. No bony, articular, or soft tissue abnormalities.
== END 2024-05-31 17:35 | disposition home or self-care (01) ==
LOC: ED 16:30
DX: S90.32XA Contusion of left foot, initial encounter (principal); W17.89XA Other fall from one level to another, initial encounter; Y92.007 Garden or yard of unspecified non-institutional (private) residence as the place of occurrence of the external cause; I10 Essential (primary) hypertension; Z79.891 Long term (current) use of opiate analgesic; Z79.899 Other long term (current) drug therapy
CPT/HCPCS: 73630; 99283; L4386

== ENCOUNTER 2024-12-12 15:01 | Emergency (ER) | payer BC, OTHER ==
[2024-12-12 15:23] VITALS: RESP 16; TEMP 97.1
[2024-12-12] MEDS ORDERED: CLEOCIN 150 MG CAPSULE ONE (16:24)
[2024-12-12] MEDS ORDERED: MORPHINE SULFATE 4 MG INJ ONE (16:24)
[2024-12-12] MEDS: CLEOCIN 150 MG CAPSULE PO ONE (16:25)
[2024-12-12] MEDS: MORPHINE SULFATE 4 MG INJ IM ONE (16:26)
[2024-12-12 17:04] VITALS: O2SAT 97
--- NOTE | 2024-12-12 17:13 | ERPHSYRPT ---
- History of Present Illness Time Seen by Provider: 12/12/24 15:29 Source: patient Exam Limitations: no limitations Patient Subjective Stated Complaint: pt states that she has had finger pain for 2 weeks. pt states that she seen Martina last week and was told she had gout. pt states that she went back 2 days ago and was given antibiotics Triage Nursing Assessment: pt ambulated into the er; pt is axo x4; c/o finger pain; pt states 10/10 to rt middle finger; swelling to rt middle finger; redness with 0.4 cm pustule first knuckle on rt middle finger; no respiratory distress present; vitals wnl Physician History: 54-year-old female presented in the ER with complains of right hand middle finger swelling this is going on for almost 2 weeks. Patient reported initially it started as a small area of swelling for which she was seen at primary care, was given gout medicine which did not help. She was started on Keflex yesterday because of increased pain swelling and some appearance of pustule. Patient reports moderate to severe sharp throbbing pain across the whole finger. Denies any trauma to the finger. No history of gout. No fever or chills reported. Allergies/Adverse Reactions: No Known Drug Allergies Allergy (Verified 12/12/24 15:06) Home Medications: Ropinirole HCl 1 mg PO HS 06/12/19 [History] Omeprazole 40 mg PO DAILY 02/01/22 [History] Oxycodone / APAP 10/325 mg [Oxycodone-Acetaminophen 10-325] 1 tab PO QID 05/31/24 [History] PARoxetine HCL [Paxil] 1 tab PO DAILY 05/31/24 [History] Pregabalin [Lyrica 75 mg Cap] 1 tab PO TID 05/31/24 [History] Allopurinol 100 mg [Zyloprim 100 mg] 100 mg PO BID 12/12/24 [History] Cephalexin Mh 250 mg [Keflex 250 mg] 500 mg PO Q8H 12/12/24 [History] Dextroamphetamine/Amphetamine [Dextroamp-Amphet ER 20 mg Cap] 20 mg PO TID 12/12/24 [History] Lisinopril/Hydrochlorothiazide [Lisinopril-Hctz 20-12.5 mg Tab] 1 each PO DAILY 12/12/24 [History] Metoprolol Tartrate 50 mg [Lopressor 50 MG] 50 mg PO DAILY 12/12/24 [History] Tizanidine HCl 6 mg PO DAILY 12/12/24 [History] Hx Tetanus, Diphtheria Vaccination/Date Given: Yes Hx Influenza Vaccination/Date Given: No Hx Pneumococcal Vaccination/Date Given: No Travel Risk - International Travel Have you traveled outside of the country in past 3 weeks: No - Emerging Infectious Disease Are you exhibiting symptoms associated with any current EIDs: No - Review of Systems Constitutional: No Symptoms Ears, Nose, & Throat: No Symptoms Respiratory: No Symptoms Cardiac: No Symptoms Musculoskeletal: Joint Redness, Joint Pain, Joint Swelling Skin: Skin Lesions Neurological: No Symptoms Endocrine: No Symptoms - Past Medical History Pertinent Past Medical History: Yes Neurological History: No Pertinent History ENT History: No Pertinent History Cardiac History: Hypertension Respiratory History: No Pertinent History Endocrine Medical History: No Pertinent History Musculoskeletal History: Fibromyalgia GI Medical History: GERD, Ulcer History: No Pertinent History Psycho-Social History: No Pertinent History Female Reproductive Disorders: No Pertinent History Other Medical History: DEPRESSION, ANXIETY, VERTIGO, MEMORY IMPAIRMENT, FIBROMYALGIA. - Past Surgical History Past Surgical History: Yes Neuro Surgical History: No Pertinent History Cardiac: No Pertinent History Respiratory: No Pertinent History Gastrointestinal: No Pertinent History Genitourinary: Kidney Surgery Musculoskeletal: Other Female Surgical History: Tubal Ligation Other Surgical History: bariatric surgery. cauterized bleeding ulcer - Social History Smoking Status: Never smoker Exposure to second hand smoke: No Drug Use: none - Social Determinants of Health Will the patient participate in the screening: Yes Do you worry about a steady place to live?: No Do you have any problems with any of the following?: No known problems In the past 12 months,have you had to go without utilities?: No Transportation Issues: No Has anyone in your support network made you feel unsafe?: No Have you or anyone in your house had to go w/o enough food: No - Nursing Vital Signs Nursing Vital Signs: Initial Vital Signs Pulse Rate 70 12/12/24 15:06 Blood Pressure 130/98 12/12/24 15:06 O2 Sat by Pulse Oximetry 99 12/12/24 15:06 Pain Scale Pain Intensity 8 - Physical Exam General Appearance: no apparent distress, alert, anxiety Eye Exam: PERRL/EOMI Neck Exam: normal inspection, full range of motion Respiratory Exam: normal breath sounds, lungs clear Cardiovascular Exam: regular rate/rhythm, normal heart sounds Extremity Exam: inflammation, joint swelling, limited range of motion, swelling (Right hand third digit diffuse swelling with a pustule on the dorsal aspect at the DIP with positive fluctuation. Blanchable swelling around. Restricted range of motion due to swelling at interphalangeal joints. Intact distal neurovascular.), tenderness Neurologic Exam: alert, oriented x 3, cooperative Skin Exam: normal color SpO2 Interpretation: normal SpO2: 97 O2 Delivery: Room Air Procedures - Incision and Drainage Time of Procedure: 15:48 Timeout: Performed Site: Right hand third digit Blade Size: other (18-gauge needle) I & D Procedure: hibiclens prep, sterile dressing applied Results: small amount pus Progress: Tolerated procedure very well Ordered Tests: Active Orders 24 hr Category Date Time Status FINGER(S) Stat Exams 12/12/24 15:40 Taken Medication Summary Discontinued Medications Generic Name Dose Route Start Last Admin Trade Name Freq PRN Reason Stop Dose Admin Bacitracin Zinc 0.9 each 12/12/24 17:26 12/12/24 17:29 Bacitracin Packet 1 Each Pckt TP 12/12/24 17:27 0.9 each STAT ONE Administration Bacitracin Zinc Confirm 12/12/24 17:26 Bacitracin Packet 1 Each Pckt Administered 12/12/24 17:27 Dose 1 each .ROUTE .STK-MED ONE Clindamycin HCl 300 mg 12/12/24 16:19 12/12/24 16:25 Clindamycin Hcl 150 Mg Capsule PO 12/12/24 16:20 300 mg STAT ONE Administration Clindamycin HCl Confirm 12/12/24 16:24 Clindamycin Hcl 150 Mg Capsule Administered 12/12/24 16:25 Dose 300 mg .ROUTE .STK-MED ONE Morphine Sulfate 4 mg 12/12/24 16:19 12/12/24 16:26 Morphine Sulfate 4 Mg/Ml Injection IM 12/12/24 16:20 4 mg STAT ONE Administration Morphine Sulfate Confirm 12/12/24 16:24 Morphine Sulfate 4 Mg/Ml Injection Administered 12/12/24 16:25 Dose 4 mg .ROUTE .STK-MED ONE - Progress Progress: improved, re-examined Progress Note: 12/12/24 17:11 54-year-old is evaluated in the ER for right hand middle finger swelling with abscess on the dorsal aspect. X-rays did not show any obvious osseous injury. After informed consent I have done needle incision and drainage of pus with improvement in swelling. I have shared picture of patient finger with Dr. Cee, recommended starting on clindamycin for better coverage. She is advised to keep it clean and wash with Hibiclens. Outpatient follow-up with Dr. Cee on Monday. Discussed signs symptoms of worsening needing return to ER which she seems understanding. Stable for discharge. Complexity of problem addressed: Moderate acute Complexity of data reviewed/analyzed: Moderate Risk of complication/morbidity/mortality of patient management: Moderate Discussed with Dr.: Other (Dr. Cee orthopedics) Counseled pt/family regarding: diagnosis, need for follow-up, rad results Medical Desision Making - Discussion of managment Care discussed with:: specialist (Dr. Cee orthopedics) Reviewed:: Need for additional workup Agreed on:: Treatment plan, need for follow-up Will see patient: In office - Diagnostic Testing Diagnostic test were ordered, analyzed, and reviewed by me: Yes Radiological Interpretation: Interpreted by me, Reviewed by me - Risk of complications The pt has a mod risk of morbidity or mortality based on: Need for prescription drug management - Departure Departure Disposition: Home Clinical Impression: Abscess of finger of right hand, Cellulitis of finger of right hand Condition: Stable Critical Care Time: No Referrals: RUFINA TIAN MD [Primary Care Provider] - Follow up with PCP 1 day JOSE ALEJANDRO CEE MD [ACTIVE STAFF] - Follow up/PCP as directed (Call tomorrow for reevaluation appointment on Monday) Instructions: Cellulitis (skin infection) in adults - Discharge instructions Additional Instructions: Keep it clean, Hibiclens soap twice a day, follow-up with orthopedics for reevaluation on Monday. Return to ER for any worsening of swelling, pain or if develop fever chills etc. Prescriptions: clindamycin HCL [Clindamycin HCl] 300 mg PO QID 7 Days #28 cap
[2024-12-12] MEDS ORDERED: BACIGUENT PACKET ONE (17:26)
[2024-12-12] MEDS: BACIGUENT PACKET TP ONE (17:29)
[2024-12-12 17:37] VITALS: BP 150/97; PULSE 72
--- NOTE | 2024-12-12 22:01 | XRAY ---
Indication: Swelling. Comparison: None 3 view right 3rd finger demonstrates osteopenia, mild DIP degenerative changes, diffuse 3rd finger soft tissue swelling, and 3-4 mm soft tissue tag posterior to DIP. No other bony, articular, or soft tissue abnormalities.
== END 2024-12-12 17:37 | disposition home or self-care (01) ==
LOC: ED 15:01
DX: L02.511 Cutaneous abscess of right hand (principal); L03.011 Cellulitis of right finger; I10 Essential (primary) hypertension; Z79.899 Other long term (current) drug therapy
CPT/HCPCS: 10160; 73140; 96372; 99283; J2270; A9270-GY

== ENCOUNTER 2024-12-16 09:54 | Day surgery (SDC) | payer BC ==
[2024-12-16] MEDS: Lactated Ringers 1,000 ML IV SCH (10:26)
[2024-12-16 10:27] VITALS: RESP 16
[2024-12-16 10:49] LABS: Hematocrit 37.3 % (34.1-44.9); Mean Cell Volume 91.4 fL (79.4-94.8); Mean Corpuscular Hemoglobin 29.4 pg (25.6-32.2); Mean Corpuscular Hgb Concent. 32.2 g/dL (32.2-35.5); Mean Platelet Volume 10.8 fL (9.4-12.3); Platelet Count 319 x10^3/uL (182-369); Red Blood Count 4.08 x10^6/uL (3.93-5.22); Red Cell Distribution Width 13.2 % (11.7-14.4); White Blood Count 6.9 x10^3/uL (3.98-10.04)
[2024-12-16] MEDS ORDERED: Sensorcaine 0.25% 10 ML ONE (10:55)
[2024-12-16 11:02] LABS: ANION GAP 10.6 MEQ/L (5-15); BILIRUBIN,TOTAL 0.4 mg/dL (0.2-1.3); Calcium 9.4 mg/dL (8.4-10.2); Creatinine 1 0.76 mg/dL (0.52-1.04); EST GLOMERULAR FILTRATION RATE 92.5 ML/MIN; Potassium 4.4 mmol/L (3.5-5.1); Total Protein 6.6 g/dL (6.3-8.2)
[2024-12-16] MEDS ORDERED: propofoL IV ONE ×2 (11:25→11:56)
[2024-12-16] MEDS ORDERED: Versed 2 MG/2 ML Injection ONE (11:25)
[2024-12-16] MEDS ORDERED: SUBLIMAZE 100 MCG/2 ML ONE (11:25)
[2024-12-16] MEDS ORDERED: Xylocaine-Mpf 2% 5 Ml Vial ONE (11:25)
[2024-12-16] MEDS ORDERED: DEXMEDETOMIDINE 80 MCG/20ML-NS IV ONE (11:25)
[2024-12-16] MEDS ORDERED: Sodium Chloride 0.9% 1000 ML 1,000 ML ONE (11:57)
[2024-12-16 12:50] VITALS: PULSE 67
[2024-12-16 12:55] VITALS: O2SAT 99
[2024-12-16 13:01] VITALS: BP 139/77
[2024-12-16 13:09] VITALS: TEMP 97.6
--- NOTE | 2025-01-10 09:38 | OP ---
SURGERY DATE/TIME: 12/21/2024 [id number] PREOPERATIVE DIAGNOSIS: Infection of right long finger. POSTOPERATIVE DIAGNOSIS: Infection of right long finger. PROCEDURE: Incision, drainage, and arthrotomy of right long finger distal interphalangeal joint. SURGEON: Desmond Crawford MD INDICATIONS: This patient was referred to us by the emergency room here at [facility] where she presented with redness, pain, and swelling of the right long finger. The symptoms had developed insidiously. She indicates that initially it seemed like dry skin, but became progressively more red, swollen, and a blister developed. The blister drained and she came to the emergency room for evaluation. She states that the doctor there tried to drain it further and placed her on antibiotics and sent her to the office. Upon our evaluation, she was noted to have significant pain, redness, and swelling of the DIP joint. We tried to express additional fluid but could not. Radiograph showed narrowing of the joint space at the DIP joint, so we suspected intra-articular sepsis. We recommended incision and drainage and scheduled her for surgery that same day. Procedure was performed as follows. DESCRIPTION OF PROCEDURE AND FINDINGS: Patient was seen in the preoperative holding area and her hand was initialed to confirm the operative finger. The plan was reviewed. She was then taken to the operating room where she was placed under general anesthesia. Sterile prep and drape of the right upper extremity was then carried out. The patient had a small opening on the dorsal ulnar side of her right long finger DIP joint. We made a longitudinal incision at the dorsal radial side. Through this incision, we placed a hemostat in a subcutaneous plane across to the open area. We undermined this with a hemostat and found no pocket of purulent fluid. We then created an arthrotomy on the dorsal radial side to avoid the terminal band. We were able to see within the joint, and again, no visible purulent fluid escaped, but we did perform lavage of the joint and the wound. We then placed packing into the wound, 0.25-inch iodoform, and brought this out through a separate stab wound. We then sutured closed the incision and applied a sterile dressing. The patient was taken to the recovery room in stable condition.
== END 2024-12-16 13:08 | disposition home or self-care (01) ==
LOC: SDC 09:54
PROVIDERS: ATTEND Orthopaedic Surgery
DX: M00.9 Pyogenic arthritis, unspecified (principal); M01.X0 Direct infection of unspecified joint in infectious and parasitic diseases classified elsewhere; L08.89 Other specified local infections of the skin and subcutaneous tissue
CPT/HCPCS: 26080; 36415; 80053; 85027; 87070; 87075; J2250; J2704; J3010